=== PATIENT | male | born 1950 | race Caucasian/White ===

== ENCOUNTER 2016-11-18 11:00 | Day surgery (SDC) | payer OTHER ==
[~2016-11-18] VITALS: Ht 185.4 cm; Wt 114.0 kg
[2016-11-18] MEDS ORDERED: 0.9% Sodium Chloride 1,000 ML ONE (11:03)
[2016-11-18] MEDS ORDERED: fentaNYL-PF 50 mCg/mL 2 mL Inj ONE (11:12)
[2016-11-18] MEDS ORDERED: METF500T4 PO (11:21)
[2016-11-18] MEDS ORDERED: MULT1CAP33 PO (11:21)
[2016-11-18] MEDS ORDERED: CHOL200047 PO (11:21)
[2016-11-18] MEDS ORDERED: LISI1TAB11 PO (11:21)
[2016-11-18] MEDS ORDERED: CALC1TAB4 PO (11:21)
[2016-11-18] MEDS ORDERED: INSU100I13 SUBQ (11:21)
[2016-11-18] MEDS ORDERED: GLIP10TA10 PO (11:21)
[2016-11-18] MEDS ORDERED: ASPI-973 PO (11:21)
[2016-11-18] MEDS ORDERED: LIP40 PO (11:21)
[2016-11-18] MEDS ORDERED: OMEP20CA11 PO (11:21)
[2016-11-18 11:23] VITALS: BP 149/87; PULSE 94; RESP 16; O2SAT 98
[2016-11-18] MEDS ORDERED: NIAC500T21 PO (11:25)
[2016-11-18] MEDS ORDERED: 0.9% Sodium Chloride 1,000 ML IV PRN (11:36)
[2016-11-18] MEDS ORDERED: fentaNYL-PF 50 mCg/mL 2 mL Inj IVPUSH PRN (11:40)
[2016-11-18] MEDS ORDERED: Sodium Chloride LOK Flush 10 mL Syringe IV PRN (11:40)
[2016-11-18 12:46] VITALS: BP 133/92; PULSE 89; RESP 14; O2SAT 94
--- NOTE | 2016-11-18 12:48 | PCM.ENDCOL ---
Colonoscopy Date of Service: Nov 18, 2016 Physician Jaskaran Garcia MD Indication for Procedure Screening personal history of polyps Post Procedure Dx & Findings: Polyps 11 status post complete removal hemorrhoids diverticuli Procedure Colonoscopy Prep fair Withdrawal 35 minutes PROCEDURE IN DETAIL: After unremarkable rectal examination Olympus video colonoscope was inserted into patient's anal canal was advanced to cecum. Landmarks are identified including the ileocecal valve and appendiceal orifice. Scope was withdrawn systematically. The mucosa of the cecum, ascending, transverse, descending, sigmoid, rectal mucosa lined with whitish, pink, smooth, glistening, normal-appearing mucosa, normal fine branching, underlying vascularity, normal haustra. The patient tolerated procedure and was transported to observation area. In the cecum, there was a 2 mm polyp which was removed completely using cold snare. In the ascending colon there were \two 1 mm polyps which were removed completely using cold forceps. In the transverse colon there two 3 mm polyps which were removed completely using cold snare. Ascending colon there were three1 mm polyps which were resected completely using cold forceps. In the sigmoid colon, where two1 cm polyps which were removed completely using hot snare. In the rectosigmoid area, it appears it was adenomatous mucosal change. This was noted under narrow banding. However upon taking the biopsy, it was obvious that this was actually a mucus. And with washing we were able to wash this off and saw normal mucosa was noted underneath it. In the sigmoid colon, there were several diverticula medium in size. In the rectum retroflexion was done which showed mild hemorrhoids anal canal was inspected carefully and the way out and hemorrhoids noted. Also in the rectum, there appears to be few 2 mm or less hyperplastic-appearing polyps. They appear to be hyperplastic, they were not taken out. This was noted using narrow banding. Impression Polyp 10 status post complete removal Mucosal changes which appeared to be adenomatous changes but washable.. Biopsy. Fair prep Diverticula Personal history of colon polyps Recommendation Diverticular diet Repeat colonoscopy in 1 year Presedation Assessment Risks and Benefits Informed consent was obtained from the patient after all risks and benefits including but not limited to drug reaction, infection, pain, bleeding, perforation, as well as alternatives were discussed. Patient monitoring Continuous pulse oximetry, cardiac monitoring, blood pressure monitoring, IV access, and oxygen at 2L per nasal cannula. Periprocedural Fentanyl: Fentanyl 100mcg Incrementally Midazolam: Midazolam 5mg Incrementally Complications There were no periprocedural complications identified. Post Procedure Plan Post Procedure Recommendations 1. Restrict activities today. 2. Resume normal activities in the morning. 3. Resume medications. 4. Patient informed of normal post procedure side effects as bloating, drowsiness, blood streaking in the stool. 5. average risk CRCS. If colon polyps come back as: -Hyperplastic- can repeat colonoscopy in 10 years -Tubular adenoma- repeat colonoscopy in 5 years -Tubulovillous/villous adenoma- repeat colonoscopy in 3 years -If any dysplasia- return to clinic as soon as possible 6. Please don't hesitate to call me with any questions. Jaskaran Garcia MD Nov 18, 2016 12:48
[2016-11-18 13:02] VITALS: BP 121/77; PULSE 87; RESP 16; O2SAT 97
--- NOTE | 2016-11-20 16:20 | PATH ---
SURGICAL PATHOLOGY Attending Physician:Jaskaran Garcia M.D. CASE STATUS: Signed Out PATIENT NAME: JUANCARLOS NORTON PID: [id number] : 1950 DATE COLLECTED:11/18/2016 23:05 SPECIMEN: 1: Colon, Biopsy 2: Colon, Biopsy 3: Colon, Biopsy 4: Colon, Biopsy 5: Colon, Biopsy 6: Colon, Biopsy CLINICAL HISTORY: 1). CECAL POLYP 2). ASCENDING COLON POLYPS 3). TRANSVERSE COLON POLYPS 4). DESCENDING COLON POLYPS 5). SIGMOID COLON POLYPS 6). RECTAL-SIGMOID ADENOMOUS BIOPSIES FINAL DIAGNOSIS: 1.CECUM, POLYP, BIOPSY: TUBULAR ADENOMA. 2.ASCENDING COLON, POLYPS, BIOPSIES: TUBULAR ADENOMAS. 3.TRANSVERSE COLON, POLYPS, BIOPSIES: SESSILE SERRATED ADENOMAS. 4.DESCENDING COLON, POLYPS, BIOPSIES: TUBULAR ADENOMA IN 1 OF 3 FRAGMENTS. HYPERPLASTIC POLYP IN 2 FRAGMENTS. 5.SIGMOID COLON, POLYPS, BIOPSIES: TUBULAR ADENOMA IN 1 OF 4 FRAGMENTS. HYPERPLASTIC POLYP WITH FEATURES OF MUCOSAL PROLAPSE IN 3 FRAGMENTS. 6.RECTOSIGMOID, POLYPS, BIOPSIES: HYPERPLASTIC POLYPS. ICD10 CODE D12.0 D12.2 D12.3 D12.4 D12.5 GROSS DESCRIPTION: The specimen is received in six formalin filled containers labeled with the patient's name. 1). The specimen is sublabeled "cecal polyp" and consists of a 0.3 x 0.3 x 0.2 CM portion of tissue which is entirely submitted in cassette 1A. 2). The specimen is sublabeled "ascending colon polyps" and consists of 3 portions of tissue which aggregate to 0.3 x 0.3 x 0.3 CM. The specimen is entirely submitted in cassette 2A. 3). The specimen is sublabeled "transverse colon polyps" and consists of 2 portions of tissue which aggregate to 0.5 x 0.4 x 0.3 CM. The specimen is entirely submitted in cassettes 3A. 4). The specimen is sublabeled "descending colon polyp" and consists of 3 portions of tissue which aggregate to 0.3 x 0.3 x 0.3 CM. The specimen is entirely submitted in cassettes 4A. 5). The specimen is sublabeled "sigmoid colon polyps" and consists of 4 portions of tissue which aggregate to 0.8 x 0.7 x 0.6 CM. The specimen is entirely submitted in cassette 5A. 6). The specimen is sublabeled "recto sigmoid adenomous" and consists of a 0.2 x 0.2 x 0.2 CM portion of tissue which is entirely submitted in cassettes 6A. 11/19/2016 DAC MICRO DESCRIPTION: See diagnosis. ICD-9 CODES: CPT CODES: 1: 34649 2: 30836 3: 19240 4: 95201 5: 90582 6: 48918 Electronically Signed Out Anne Dawn MD [facility] [address], [place] [address] Technical component performed at [facility], [facility] [address], [place], [address]
== END 2016-11-18 23:59 | disposition home or self-care (01) ==
LOC: END 11:00
PROVIDERS: ATTEND Internal Medicine
DX: Z12.11 Encounter for screening for malignant neoplasm of colon (principal); D12.0 Benign neoplasm of cecum; D12.2 Benign neoplasm of ascending colon; D12.3 Benign neoplasm of transverse colon; D12.5 Benign neoplasm of sigmoid colon; K63.5 Polyp of colon; K64.8 Other hemorrhoids; K62.1 Rectal polyp; K57.30 Diverticulosis of large intestine without perforation or abscess without bleeding; Z86.010 Personal history of colon polyps
CPT/HCPCS: 45380; 45385; 99153; G0500; J2250; J3010; J7030